=== PATIENT | female | born 1990 | race Caucasian/White ===

== ENCOUNTER 2020-06-28 19:26 | Emergency (ER) | payer OTHER, SELFPAY ==
[~2020-06-28] VITALS: Ht 152.4 cm; Wt 68.0 kg
[2020-06-28 19:32] VITALS: BP 111/60; Ht 152.4 cm; Wt 68.0 kg
== END 2020-06-28 20:07 | disposition home or self-care (01) ==
LOC: ED 19:26
DX: K52.9 Noninfective gastroenteritis and colitis, unspecified (principal); Z20.828 Contact with and (suspected) exposure to other viral communicable diseases
CPT/HCPCS: U0003-CS

== ENCOUNTER 2020-07-08 21:57 | Emergency (ER) | payer OTHER, SELFPAY ==
[~2020-07-08] VITALS: Ht 152.4 cm; Wt 68.0 kg
[2020-07-08 22:09] VITALS: Ht 152.4 cm; Wt 68.0 kg
[2020-07-09 01:55] LABS: BASOPHIL % 0.7 % (0-2); PLATELET COUNT 323 x10^3mcL (130-400); RED CELL DISTRIBUTION WIDTH 13.5 % (11.5-14.5)
[2020-07-09 02:04] LABS: CALCIUM 8.4 mg/dL (8.5-10.1); CARBON DIOXIDE 23.9 mmol/L (21-32); CHLORIDE SERUM 106 mmol/L (98-107); CREATININE SERUM 0.9 mg/dL (0.6-1.0); GFR1 > 60 mL/min; GLUCOSE SERUM 94 mg/dL (74-106); POTASSIUM SERUM 3.6 mmol/L (3.5-5.1); SODIUM SERUM 138 mmol/L (136-145)
[2020-07-09 02:06] LABS: ALKALINE PHOSPHATASE 65 U/L (46-116); ALT/SGPT 39 U/L (14-59); AST/SGOT 31 U/L (15-37); BILIRUBIN TOTAL 0.26 mg/dL (0.20-1.00); TOTAL PROTEIN, SERUM 6.6 g/dL (6.4-8.2)
[2020-07-09 02:07] LABS: ALBUMIN 3.3 g/dL (3.4-5.0)
[2020-07-09 02:54] VITALS: BP 110/80
== END 2020-07-09 02:40 | disposition left against medical advice (07) ==
LOC: ED 21:57
PROVIDERS: Emergency Medicine
DX: R06.00 Dyspnea, unspecified (principal); Z98.890 Other specified postprocedural states
CPT/HCPCS: 85378; J1885; Q0092